=== PATIENT | male | born 1960 | race Caucasian/White ===

== ENCOUNTER 2019-05-16 22:58 | Inpatient (IN) | payer MEDICAID ==
[~2019-05-16] VITALS: Ht 162.6 cm; Wt 77.2 kg
[2019-05-17] MEDS ORDERED: IPRATROPIUM/ALBUTEROL 0.5-3(2.5)MG/3ML NEB HHN ONE (00:30)
[2019-05-17 00:43] LABS: EOSINOPHILS % 2.5 % (0.0-5.0); HEMATOCRIT. 39.6 % (42.0-52.0); HEMOGLOBIN. 13.4 g/dL (14.0-18.0); MEAN CORPUSCULAR VOLUME 94.5 fL (80.0-94.0); MEAN PLATELET VOLUME 8.3 fl (7.4-10.4); MONOCYTES % 8.2 % (2.0-8.0); NEUTROPHILS % 64.3 % (40.0-76.0); PLATELET 223 x1000/uL (130-400); RED BLOOD CELL COUNT 4.19 mill/uL (4.7-6.1); RED CELL DISTRIBUTION WIDTH 14.7 % (11.6-14.6)
[2019-05-17 00:46] LABS: CHLORIDE 109 mEq/L (98-107)
[2019-05-17 00:49] LABS: INR 1.2; PARTIAL THROMBOPLASTIN TIME 31.3 sec (23.4-31.0)
[2019-05-17] MEDS ORDERED: FUROSEMIDE 40MG/4ML VIAL IVP ONE (01:00)
[2019-05-17] MEDS ORDERED: KETOROLAC 15MG/ML VIAL IV ONE (01:00)
[2019-05-17 09:00] VITALS: BP 131/95
[2019-05-17] MEDS ORDERED: ONDANSETRON HCL 4MG/2ML INJ IV PRN (10:00)
[2019-05-17] MEDS ORDERED: IPRATROPIUM/ALBUTEROL 0.5-3(2.5)MG/3ML NEB HHN PRN (10:00)
[2019-05-17] MEDS ORDERED: ACETAMINOPHEN 325MG TABLET PO PRN (10:00)
[2019-05-17] MEDS ORDERED: POTASSIUM CHLORIDE 20MEQ TABLET SR PO NR (10:15)
[2019-05-17] MEDS ORDERED: LOSARTAN POTASSIUM 25 MG TABLET PO SCH (10:15)
[2019-05-17] MEDS ORDERED: FUROSEMIDE 40MG/4ML VIAL IVP SCH (10:30)
[2019-05-17] MEDS ORDERED: KETOROLAC 30MG/ML VIAL IV PRN (11:30)
[2019-05-17] MEDS ORDERED: ENOXAPARIN 40MG/0.4ML SYR SUBCUT SCH (12:00)
[2019-05-17 16:29] LABS: CLARITY URINE CLEAR (CLEAR); COLOR URINE YELLOW (YELLOW); KETONES URINE NEGATIVE (NEGATIVE); LEUKOCYTE ESTERASE URINE NEGATIVE (NEGATIVE); NITRITE URINE NEGATIVE (NEGATIVE); OCCULT BLOOD URINE NEGATIVE (NEGATIVE); PROTEIN URINE 1+ (NEGATIVE); SPECIFIC GRAVITY URINE 1.014 (1.005-1.030)
[2019-05-17 17:09] LABS: *AMPHETAMINES SCREEN URINE PRESUMTIVE POSITIVE (NEGATIVE); *BARBITURATES SCREEN URINE NEGATIVE (NEGATIVE); *BENZODIAZEPINES SCREEN URINE NEGATIVE (NEGATIVE)
[2019-05-17 17:10] LABS: *COCAINE SCREEN URINE NEGATIVE (NEGATIVE); CANNABINOID URINE SCREEN PRESUMTIVE POSITIVE (NEGATIVE); METHADONE URINE SCREEN NEGATIVE (NEGATIVE); OPIATES URINE SCREEN NEGATIVE (NEGATIVE); PHENCYCLIDINE URINE SCREEN NEGATIVE (NEGATIVE)
[2019-05-17] MEDS ORDERED: METFORMIN HCL 500MG TABLET PO SCH (17:15)
[2019-05-17] MEDS ORDERED: CARVEDILOL 6.25 MG TABLET PO SCH (21:00)
== END 2019-05-17 11:55 | disposition left against medical advice (07) | DRG 194 ==
LOC: ER 22:58 → 5WST 05-17 03:42 → ENRESERV 05-17 07:59
PROVIDERS: ADMIT Internal Medicine; ATTEND Internal Medicine
DX: I11.0 Hypertensive heart disease with heart failure (principal); E44.1 Mild protein-calorie malnutrition; E87.8 Other disorders of electrolyte and fluid balance, not elsewhere classified; E11.9 Type 2 diabetes mellitus without complications; I50.23 Acute on chronic systolic (congestive) heart failure; E87.6 Hypokalemia; R74.0 Nonspecific elevation of levels of transaminase and lactic acid dehydrogenase [LDH]; F15.90 Other stimulant use, unspecified, uncomplicated; F17.210 Nicotine dependence, cigarettes, uncomplicated; I25.10 Atherosclerotic heart disease of native coronary artery without angina pectoris; J44.9 Chronic obstructive pulmonary disease, unspecified; Z53.29 Procedure and treatment not carried out because of patient's decision for other reasons; Z88.0 Allergy status to penicillin; Z71.6 Tobacco abuse counseling; Z71.51 Drug abuse counseling and surveillance of drug abuser; I25.2 Old myocardial infarction; Z68.29 Body mass index [BMI] 29.0-29.9, adult
CPT/HCPCS: 36415; 71045; 80305; 81003; 83880; 84484; 93005; 94640; 96374; 96375; 99285; J1885; J1940; J7620

== ENCOUNTER 2019-10-18 10:36 | Emergency (ER) | payer MEDICAID ==
[~2019-10-18] VITALS: Ht 175.3 cm; Wt 70.0 kg
[2019-10-18] MEDS ORDERED: KETOROLAC 30MG/ML VIAL IV ONE (11:30)
[2019-10-18] MEDS ORDERED: ALBUTEROL 6.7GM HFA INHALER ORI ONE (11:30)
[2019-10-18] MEDS ORDERED: ALBUTEROL (0.083%) 2.5MG/3ML NEB HHN SCH (11:45)
[2019-10-18 11:58] LABS: BG BASE EXCESS 0.6 mmol/L (-2.0-2.0); BG DEOXYHEMOGLOBIN 1.6 % (0.0-5.0); BG HCO3 ACT 24.1 mmol/L (22.0-26.0); BG METHEMOGLOBIN 0.1 % (0.0-1.5); BG OXYGEN SATURATION 98.4 % (92.0-98.5); BG OXYHEMOGLOBIN 97.3 % (94.0-97.0); BG PCO2 35.6 mmHg (35.0-45.0); BG PH 7.449 (7.350-7.450); BG PO2 110.9 mmHg (75.0-100.0); BG SAMPLE SITE RIGHT RADIAL; BG TOTAL HEMOGLOBIN 14.1 g/dL (12.0-18.0); BG VENT MODE NASAL CANNULA
[2019-10-18 12:01] LABS: BASOPHILS % 0.5 % (0.0-2.0); EOSINOPHILS % 0.4 % (0.0-5.0); HEMATOCRIT. 43.1 % (42.0-52.0); HEMOGLOBIN. 14.2 g/dL (14.0-18.0); LYMPHOCYTES % 16.4 % (20.0-50.0); MEAN CORPUSCULAR HEMOGLOBIN 30.3 pg (28.0-32.0); MEAN CORPUSCULAR VOLUME 91.6 fL (80.0-94.0); NEUTROPHILS % 73.7 % (40.0-76.0); PLATELET 217 x1000/uL (130-400); RED CELL DISTRIBUTION WIDTH 14.5 % (11.6-14.6)
[2019-10-18 12:08] LABS: CHLORIDE 103 mEq/L (98-107)
[2019-10-18 12:13] LABS: ETHANOL BLOOD < 10 mg/dL
[2019-10-18 14:42] LABS: *AMPHETAMINES SCREEN URINE PRESUMTIVE POSITIVE (NEGATIVE); *BARBITURATES SCREEN URINE NEGATIVE (NEGATIVE); *BENZODIAZEPINES SCREEN URINE PRESUMTIVE POSITIVE (NEGATIVE); METHADONE URINE SCREEN NEGATIVE (NEGATIVE); PHENCYCLIDINE URINE SCREEN NEGATIVE (NEGATIVE)
[2019-10-18 14:43] LABS: CANNABINOID URINE SCREEN PRESUMTIVE POSITIVE (NEGATIVE); OPIATES URINE SCREEN PRESUMTIVE POSITIVE (NEGATIVE)
[2019-10-18 14:45] LABS: *COCAINE SCREEN URINE NEGATIVE (NEGATIVE)
[2019-10-18] MEDS ORDERED: TRAMADOL 50MG TABLET PO ONE (14:45)
[2019-10-18 14:54] VITALS: BP 140/89
== END 2019-10-18 15:17 | disposition left against medical advice (07) ==
LOC: ER 10:36
DX: F11.10 Opioid abuse, uncomplicated (principal); F15.10 Other stimulant abuse, uncomplicated; F12.10 Cannabis abuse, uncomplicated; F17.290 Nicotine dependence, other tobacco product, uncomplicated; I11.0 Hypertensive heart disease with heart failure; I50.9 Heart failure, unspecified; J44.9 Chronic obstructive pulmonary disease, unspecified; Z88.0 Allergy status to penicillin; F13.10 Sedative, hypnotic or anxiolytic abuse, uncomplicated
CPT/HCPCS: 36415; 36600; 71045; 80053; 80305; 80320; 82375; 82805; 83880; 84484; 85025; 87804; 93005; 96374; 99285; J1885; Z7610; G0480